=== PATIENT | male | born 1950 | race Caucasian/White ===

== ENCOUNTER 2017-08-12 16:14 | Emergency (ER) | payer SELFPAY ==
[~2017-08-12] VITALS: Ht 188 cm; Wt 100.0 kg
[2017-08-12 16:16] VITALS: BP 120/73; PULSE 86; RESP 20; TEMP 97.8; O2SAT 96
[2017-08-12 18:31] VITALS: BP 129/69; PULSE 68; RESP 19; TEMP 97.8; O2SAT 97
--- NOTE | 2017-08-12 18:36 | PD ---
HPI Chief Complaint: Psychiatric Symptoms Time Seen by Provider: 18:21 Travel History International Travel<30 days: No Contact w/Intl Traveler<30days: No Traveled to known affect area: No History of Present Illness HPI 66yo M with recently diagnosed depression here stating that he wants to kill himself. Denies any homicidal ideation. States he does have a chronic cough for 6 weeks and is a chronic cig smoker. Denies any fever, chest pain, sob, n/v , abdominal pain, focal weakness or numbness. Occasional cocaine use. PFSH Past Medical History Anxiety: Yes Depression: Yes Tetanus Vaccination: Unknown Social History Alcohol Use: No Tobacco Use: Yes Substance Use: Yes (cocaine last night) Allergies-Medications (Allergen,Severity, Reaction): Coded Allergies: No Known Drug Allergies (Verified Allergy, Unknown, 08/13/17) Reported Meds & Prescriptions Reported Meds & Active Scripts Active No Active Prescriptions or Reported Medications Review of Systems Except as stated in HPI: all other systems reviewed are Neg Physical Exam Narrative GEN: 66yo M not in distress. SKIN: Warm and dry. HEAD: Normocephalic, atraumatic. CV: S1, S2. Lungs: CTA B/L, equal breath sounds Abd: soft, NT/ND. No rebound tenderness or guarding. EXT: No edema. No calf tenderness. Neuro: No focal neurologic deficits. Muscle strength 5/5 in all extremities. Sensation intact. Data Data Last Documented VS Vital Signs Date Time Temp Pulse Resp B/P (MAP) Pulse Ox O2 Delivery O2 Flow Rate FiO2 08/13/17 12:03 18 08/13/17 12:02 97.7 58 118/80 (93) 97 Room Air Orders Orders Complete Blood Count With Diff (08/12/17 18:31) Basic Metabolic Panel (Bmp) (08/12/17 18:31) Psych Screen (08/12/17 18:31) Drug Screen, Random Urine (08/12/17 18:31) Alcohol (Ethanol) (08/12/17 18:31) Salicylates (Aspirin) (08/12/17 18:31) Tylenol (Acetaminophen) (08/12/17 18:31) Chest, Single Ap (08/12/17 ) Diet Regular Basic (08/13/17 Breakfast) Ibuprofen (Motrin) (08/13/17 09:15) Labs Laboratory Tests Test 08/12/17 05:20 08/12/17 18:48 Urine Opiates Screen NEG Urine Barbiturates Screen NEG Urine Amphetamines Screen NEG Urine Benzodiazepines Screen NEG Urine Cocaine Screen POS Urine Cannabinoids Screen NEG White Blood Count 7.0 TH/MM3 Red Blood Count 5.35 MIL/MM3 Hemoglobin 15.4 GM/DL Hematocrit 45.0 % Mean Corpuscular Volume 84.0 FL Mean Corpuscular Hemoglobin 28.8 PG Mean Corpuscular Hemoglobin Concent 34.3 % Red Cell Distribution Width 14.4 % Platelet Count 157 TH/MM3 Mean Platelet Volume 7.3 FL Neutrophils (%) (Auto) 52.8 % Lymphocytes (%) (Auto) 30.8 % Monocytes (%) (Auto) 9.8 % Eosinophils (%) (Auto) 6.3 % Basophils (%) (Auto) 0.3 % Neutrophils # (Auto) 3.7 TH/MM3 Lymphocytes # (Auto) 2.2 TH/MM3 Monocytes # (Auto) 0.7 TH/MM3 Eosinophils # (Auto) 0.4 TH/MM3 Basophils # (Auto) 0.0 TH/MM3 CBC Comment DIFF FINAL Differential Comment Blood Urea Nitrogen 18 MG/DL Creatinine 1.03 MG/DL Random Glucose 95 MG/DL Calcium Level 8.9 MG/DL Sodium Level 140 MEQ/L Potassium Level 3.8 MEQ/L Chloride Level 104 MEQ/L Carbon Dioxide Level 28.7 MEQ/L Anion Gap 7 MEQ/L Estimat Glomerular Filtration Rate 73 ML/MIN Salicylates Level LESS THAN 1.7 MG/DL Acetaminophen Level LESS THAN 2.0 MCG/ML Ethyl Alcohol Level LESS THAN 3 MG/DL MDM Medical Decision Making Medical Screen Exam Complete: Yes Emergency Medical Condition: Yes Differential Diagnosis Depression vs. drug induced mood disorder vs. bronchitis Narrative Course 66yo M with depression here stating he has suicidal ideation. CXR negative. Labs reviewed, no leukocytosis. BMP unremarkable. Alcohol negative. Salicylate and acetaminophen negative. Pt is medically clear for psych evaluation. Diagnosis Primary Impression: Depression Qualified Codes: F32.9 - Major depressive disorder, single episode, unspecified Scripts No Active Prescriptions or Reported Meds Mariely Leonard DO Aug 12, 2017 18:36
--- NOTE | 2017-08-12 19:09 | RADRPT ---
EXAM DATE/TIME: 08/12/2017 19:07 [facility] COMPARISON: No previous studies available for comparison. INDICATIONS : Cough for 6 weeks. MEDICAL HISTORY : None. SURGICAL HISTORY : None. ENCOUNTER: Initial ACUITY: 2 months PAIN SCORE: 2/10 LOCATION: Bilateral chest FINDINGS: A single view of the chest demonstrates the lungs to be symmetrically aerated without evidence of mas s, infiltrate or effusion. The cardiomediastinal contours are unremarkable. Osseous structures are intact. CONCLUSION: No evidence of acute cardiopulmonary disease. Chapin Bryson MD on August 12, 2017 at 19:07 Board Certified Radiologist. This report was verified electronically.
[2017-08-12 19:26] LABS: ANION GAP 7 MEQ/L (5-15); BICARBONATE 28.7 MEQ/L (21.0-32.0); BLOOD UREA NITROGEN 18 MG/DL (7-18); CHLORIDE 104 MEQ/L (98-107); GLOMERULAR FILTRATION RATE 73 ML/MIN (>89); POTASSIUM 3.8 MEQ/L (3.5-5.1); SODIUM (NA) 140 MEQ/L (136-145)
[2017-08-12 19:27] LABS: ALCOHOL LESS THAN 3 MG/DL (0-5)
[2017-08-12 19:29] LABS: AUTOMATED NEUTROPHIL # 3.7 TH/MM3 (1.8-7.7); BASOPHIL % 0.3 % (0.0-2.0); EOSINOPHIL # 0.4 TH/MM3 (0-0.4); EOSINOPHIL % 6.3 % (0.0-4.0); HEMO FLAGS DIFF FINAL; LYMPH % 30.8 % (9.0-44.0); LYMPHOCYTE # 2.2 TH/MM3 (1.0-4.8); MEAN CORPUSCULAR HEMOGLOBIN 28.8 PG (27.0-34.0); MEAN CORPUSCULAR HGB CONC 34.3 % (32.0-36.0); MONO % 9.8 % (0.0-8.0); NEUT % 52.8 % (16.0-70.0); PLATELET COUNT 157 TH/MM3 (150-450); RED BLOOD COUNT 5.35 MIL/MM3 (4.50-5.90); RED CELL DISTRIBUTION WIDTH 14.4 % (11.6-17.2)
[2017-08-12 19:42] LABS: ACETAMINOPHEN LESS THAN 2.0 MCG/ML (10.0-30.0)
[2017-08-13 00:27] VITALS: BP 103/59; PULSE 68; RESP 16; O2SAT 95
[2017-08-13 05:21] VITALS: BP 137/49; PULSE 63; RESP 19; O2SAT 95
[2017-08-13 08:09] VITALS: BP 131/73; PULSE 67; RESP 22; TEMP 97.6; O2SAT 96
[2017-08-13] MEDS ORDERED: IBUPROFEN 800 MG TAB PO ONE (09:15)
[2017-08-13 12:02] VITALS: BP 118/80; PULSE 58; RESP 18; TEMP 97.7; O2SAT 97
[2017-08-13 12:03] VITALS: RESP 18
--- NOTE | 2017-08-13 12:30 | PD ---
History of Present Illness Chief Complaint: Psychiatric Symptoms Time Seen by Provider: 12:15 Travel History International Travel<30 Days: No Contact w/Intl Traveler<30days: No Known affected area: No Legal Status Legal Status: Voluntary History of Present Illness: History of Present Illness HPI 66yo M with history of cocaine abuse and a reported hx of depression who presents to Ed on a voluntary basis for evaluation of suicdal thoughts. The patient reports that since he was released from [facility] today , due to a dirty urine, he has been having fleeting suicdal thoughts. He has not made any attempts at harming himself and has no previous suicidal attempts. He states that he has "issues that I have to resolve". Denies any homicidal ideation. . Patient seen. Record reviewed. No previous contact with [facility] psychiatry. His current toxicology is positive for cocaine. Patient eating his lunch. He is alert and oriented male who is dressed casually . Maintaining basic hygiene. His speech is clear and logical. There is no evidence of any psychosis and no jason. He does not present any objective clinical symptoms of depression.Reports fleeting suicdal thoughts of walking in front of a moving vehicle. He relates along history of cocaine abuse dating to his early forties. He is requesting help for his unresolved issues as well as for his continued use of cocaine He is able to go back to [facility] on Thursday and this is probably his motivation for being here. He agrees to meet with Case manger to explore options [facility] Past Medical History Anxiety: Yes Depression: Yes Tetanus Vaccination: Unknown Psychiatric History Psychiatric History Hx Psychiatric Treatment: Depression. Has been treated with Prozac in the past. Did nto follow up with tx. History of Inpatient Treatment: Yes Guns or firearms in home: No Social History completed college. Single. Lives at [facility]. Works in construction Hx Alcohol Use: No Hx Tobacco Use: Yes Hx Substance Use: Yes (1 ppd cigarettes, cocaine 3-4x/yr, last use yesterday) Substance Use Type: Nicotine/Cigarettes, Cocaine Hx of Substance Use Treatment: Yes (Multiple admissions to rehab facilitues including [facility], [facility] Family Psychiatric History negative Allergies-Medications (Allergen,Severity, Reaction): Coded Allergies: No Known Drug Allergies (Verified Allergy, Unknown, 08/13/17) Reported Meds & Prescriptions Reported Meds & Active Scripts Active No Active Prescriptions or Reported Medications Review of Systems Except as stated in HPI: all other systems reviewed are Neg Exam Alert: Yes [place]: Person (ox4) Mood: Angry, Calm Affect: Appropriate Speech: Clear Eye Contact: Normal Memory Intact: Comment (No impairmetn) Hallucinations: Other (Negative) Delusions: No Suicidal: Ideation (Negative) Homicidal: Ideation (negative) Insight/Judgement Poor. Not impaired MDM Medical Decision Making Medical Record Reviewed: Yes Assessment/Plan 66yo M with history of cocaine abuse and a reported hx of depression here stating that he wants to kill himself. Patient w relapse and was told he needed to leave [facility] until Thursday. He finds himself homeless. Patient is not psychotic and does not present objective clinical signs of depression. He wants to begin treatment and accepts an appointment for [facility] for tomorrow morning. He will return to [facility] on Thursday. He was making arrangements to stay with his sponsor after his discharge here. He does not meet criteria for inpatient psychiatric treatment as his primary dx is substance use disorder and his motivation for seeking treatment at this time is finding himself homeless for 24 hours. He contracts for safety and agrees to return to ED if experiences any changes. At this time the patient is psychiatrically clear for discharge from ED. Case discusses with Caleb Ny. [facility] case supervisor Tristan present during last part of evaluation to assist with connecting patient w [facility]. Orders Orders Complete Blood Count With Diff (08/12/17 18:31) Basic Metabolic Panel (Bmp) (08/12/17 18:31) Psych Screen (08/12/17 18:31) Drug Screen, Random Urine (08/12/17 18:31) Alcohol (Ethanol) (08/12/17 18:31) Salicylates (Aspirin) (08/12/17 18:31) Tylenol (Acetaminophen) (08/12/17 18:31) Chest, Single Ap (08/12/17 ) Diet Regular Basic (08/13/17 Breakfast) Ibuprofen (Motrin) (08/13/17 09:15) Results Vital Signs Date Time Temp Pulse Resp B/P (MAP) Pulse Ox O2 Delivery O2 Flow Rate FiO2 08/13/17 12:03 18 08/13/17 12:02 97.7 58 18 118/80 (93) 97 Room Air 08/13/17 08:09 97.6 67 22 131/73 (92) 96 Room Air 08/13/17 05:21 63 19 137/49 (78) 95 Room Air 08/13/17 00:27 68 16 103/59 (74) 95 Room Air 08/12/17 18:31 97.8 68 19 129/69 (89) 97 Room Air 08/12/17 18:26 18 08/12/17 16:16 97.8 86 20 120/73 (89) 96 Room Air Laboratory Tests Test 08/12/17 18:48 White Blood Count 7.0 Red Blood Count 5.35 Hemoglobin 15.4 Hematocrit 45.0 Mean Corpuscular Volume 84.0 Mean Corpuscular Hemoglobin 28.8 Mean Corpuscular Hemoglobin Concent 34.3 Red Cell Distribution Width 14.4 Platelet Count 157 Mean Platelet Volume 7.3 Neutrophils (%) (Auto) 52.8 Lymphocytes (%) (Auto) 30.8 Monocytes (%) (Auto) 9.8 Eosinophils (%) (Auto) 6.3 Basophils (%) (Auto) 0.3 Neutrophils # (Auto) 3.7 Lymphocytes # (Auto) 2.2 Monocytes # (Auto) 0.7 Eosinophils # (Auto) 0.4 Basophils # (Auto) 0.0 CBC Comment DIFF FINAL Differential Comment Blood Urea Nitrogen 18 Creatinine 1.03 Random Glucose 95 Calcium Level 8.9 Sodium Level 140 Potassium Level 3.8 Chloride Level 104 Carbon Dioxide Level 28.7 Anion Gap 7 Estimat Glomerular Filtration Rate 73 Salicylates Level LESS THAN 1.7 Acetaminophen Level LESS THAN 2.0 Ethyl Alcohol Level LESS THAN 3 Diagnosis Primary Impression: Cocaine abuse Additional Impression: Substance induced mood disorder Psychiatrically Cleared: Yes Med/ Other Pt Specific Info: No Meds Exist/No RX given Prescriptions No Active Prescriptions or Reported Meds Disposition: 01 DISCHARGE HOME Condition: Stable Problem Qualifiers Desire Masterson Aug 13, 2017 12:30
--- NOTE | 2017-08-13 13:05 | PD ---
Physical Exam Narrative I was asked by psych to discharge the patient's after they cleared him. Patient was previously medically clear by previous provider. Patient denies any medical complaints currently. Denies any homicidal or suicidal ideations. Data Data Last Documented VS Vital Signs Date Time Temp Pulse Resp B/P (MAP) Pulse Ox O2 Delivery O2 Flow Rate FiO2 08/13/17 12:03 18 08/13/17 12:02 97.7 58 118/80 (93) 97 Room Air Orders Orders Complete Blood Count With Diff (08/12/17 18:31) Basic Metabolic Panel (Bmp) (08/12/17 18:31) Psych Screen (08/12/17 18:31) Drug Screen, Random Urine (08/12/17 18:31) Alcohol (Ethanol) (08/12/17 18:31) Salicylates (Aspirin) (08/12/17 18:31) Tylenol (Acetaminophen) (08/12/17 18:31) Chest, Single Ap (08/12/17 ) Diet Regular Basic (08/13/17 Breakfast) Ibuprofen (Motrin) (08/13/17 09:15) Labs Laboratory Tests Test 08/12/17 05:20 08/12/17 18:48 Urine Opiates Screen NEG Urine Barbiturates Screen NEG Urine Amphetamines Screen NEG Urine Benzodiazepines Screen NEG Urine Cocaine Screen POS Urine Cannabinoids Screen NEG White Blood Count 7.0 TH/MM3 Red Blood Count 5.35 MIL/MM3 Hemoglobin 15.4 GM/DL Hematocrit 45.0 % Mean Corpuscular Volume 84.0 FL Mean Corpuscular Hemoglobin 28.8 PG Mean Corpuscular Hemoglobin Concent 34.3 % Red Cell Distribution Width 14.4 % Platelet Count 157 TH/MM3 Mean Platelet Volume 7.3 FL Neutrophils (%) (Auto) 52.8 % Lymphocytes (%) (Auto) 30.8 % Monocytes (%) (Auto) 9.8 % Eosinophils (%) (Auto) 6.3 % Basophils (%) (Auto) 0.3 % Neutrophils # (Auto) 3.7 TH/MM3 Lymphocytes # (Auto) 2.2 TH/MM3 Monocytes # (Auto) 0.7 TH/MM3 Eosinophils # (Auto) 0.4 TH/MM3 Basophils # (Auto) 0.0 TH/MM3 CBC Comment DIFF FINAL Differential Comment Blood Urea Nitrogen 18 MG/DL Creatinine 1.03 MG/DL Random Glucose 95 MG/DL Calcium Level 8.9 MG/DL Sodium Level 140 MEQ/L Potassium Level 3.8 MEQ/L Chloride Level 104 MEQ/L Carbon Dioxide Level 28.7 MEQ/L Anion Gap 7 MEQ/L Estimat Glomerular Filtration Rate 73 ML/MIN Salicylates Level LESS THAN 1.7 MG/DL Acetaminophen Level LESS THAN 2.0 MCG/ML Ethyl Alcohol Level LESS THAN 3 MG/DL MDM Supervised Visit with [facility]: No Diagnosis Primary Impression: Depression Qualified Codes: F32.9 - Major depressive disorder, single episode, unspecified Referrals: [facility] Additional Instruction: Follow-up with your primary care physician and/or Mani Ray for evaluation. Return to the emergency department if symptoms get worse. Scripts No Active Prescriptions or Reported Meds Disposition: 01 DISCHARGE HOME Condition: Stable Caleb Grant Aug 13, 2017 13:05
== END 2017-08-13 14:24 | disposition home or self-care (01) ==
LOC: NEPD 16:14 → NEPB 08-13 14:24
DX: F32.9 Major depressive disorder, single episode, unspecified (principal); F14.10 Cocaine abuse, uncomplicated; F17.210 Nicotine dependence, cigarettes, uncomplicated
CPT/HCPCS: 71010; 80048; 80307; 85025; 99284